=== PATIENT | male | born 1975 | race Caucasian/White ===

== ENCOUNTER 2020-07-07 12:11 | Emergency (ER) | payer OTHER ==
[2020-07-07 12:17] VITALS: TEMP 97.3; BMI 26.6
--- NOTE | 2020-07-07 12:53 | PDOC ---
History of Present Illness - General Chief Complaint: Headache Stated Complaint: THUNDERCLAP HEADACHE Time Seen by Provider: 07/07/20 12:52 History Source: Patient Exam Limitations: No Limitations - History of Present Illness Initial Comments: 07/07/20 12:52 Vamshi London is a 44M with no PMH presenting with acute onset GAINES. Per urgent care report, Past History - Medical History Allergies/Adverse Reactions: Allergies Allergy/AdvReac Type Severity Reaction Status Date / Time No Known Allergies Allergy Verified 07/07/20 12:13 COPD: No Other medical history: SHINGLES - Immunization History Immunization Up to Date: No - Psycho-Social/Smoking History Smoking History: Never smoked - Substance Abuse Hx (Audit-C & DAST Scrn) How often the patient has a drink containing alcohol: 2-3 times / week Number of drinks the patient has on a typical day: 3 or 4 How often the patient has six or more drinks on one occasion: Never Score: In Men: 4 or > Positive; In Women: 3 or > Positive: 4 Screen Result (Pos requires Nsg. Audit-10AR): Positive In the last yr the pt used illegal drug/Rx for NonMed reason: No Score: Yes response is considered Positive: 0 Screen Result (Positive result requires Nsg. DAST-10): Negative *Physical Exam - Vital Signs Last Vital Signs Temp Pulse Resp BP Pulse Ox 97.3 F L 79 18 138/98 100 07/07/20 12:14 07/07/20 12:14 07/07/20 12:14 07/07/20 12:14 07/07/20 12:14 Discharge - Discharge Information Clinical Impression/Diagnosis: Headache Condition: Unchanged/Unknown Disposition: ELOPED - Follow up/Referral - Patient Discharge Instructions - Post Discharge Activity
--- NOTE | 2020-07-07 13:56 | PDOC ---
Attending Attestation - Resident Resident Name: Jose G Cowan - ED Attending Attestation I have performed the following: I have examined & evaluated the patient, The case was reviewed & discussed with the resident, I agree w/resident's findings & plan - HPI HPI: 07/07/20 12:55 44y M with no pmhx presents to the ED for evaluation of headache. The pt went to urgent care this morning to get a
--- NOTE | 2020-07-07 14:33 | PDOC ---
History of Present Illness - General History Source: Patient Exam Limitations: No Limitations <DeepakBrandy - Last Filed: 07/07/20 14:28> <BaNico - Last Filed: 07/12/20 08:30> - General Chief Complaint: Headache Stated Complaint: THUNDERCLAP HEADACHE Time Seen by Provider: 07/07/20 12:52 Past History - Travel History Traveled outside of the country in the last 30 days: No Close contact w/someone who was outside of country & ill: No - Medical History COPD: No Other medical history: SHINGLES - Immunization History Immunization Up to Date: No - Psycho-Social/Smoking History Smoking History: Never smoked - Substance Abuse Hx (Audit-C & DAST Scrn) How often the patient has a drink containing alcohol: 2-3 times / week Number of drinks the patient has on a typical day: 3 or 4 How often the patient has six or more drinks on one occasion: Never Score: In Men: 4 or > Positive; In Women: 3 or > Positive: 4 Screen Result (Pos requires Nsg. Audit-10AR): Positive In the last yr the pt used illegal drug/Rx for NonMed reason: No Score: Yes response is considered Positive: 0 Screen Result (Positive result requires Nsg. DAST-10): Negative <Brandy Sotelo - Last Filed: 07/07/20 14:28> <Nico Cosme - Last Filed: 07/12/20 08:30> - Medical History Allergies/Adverse Reactions: Allergies Allergy/AdvReac Type Severity Reaction Status Date / Time No Known Allergies Allergy Verified 07/07/20 12:13 Review of Systems - Review of Systems Able to Perform ROS?: Yes Comments:: 07/07/20 14:28 CONSTITUTIONAL: Absent: fever, chills, diaphoresis, generalized weakness, malaise, loss of appetite HEENT: Absent: rhinorrhea, nasal congestion, throat pain, throat swelling, difficulty swallowing, mouth swelling, ear pain, eye pain, visual Changes CARDIOVASCULAR: Absent: chest pain, loss of consciousness, palpitations, irregular heart rate, peripheral edema RESPIRATORY: Absent: cough, shortness of breath, dyspnea with exertion, orthopnea, wheezing, stridor, hemoptysis GASTROINTESTINAL: Absent: abdominal pain, abdominal distension, nausea, vomiting, diarrhea, constipation, melena, hematochezia GENITOURINARY: Absent: dysuria, frequency, urgency, hesitancy, hematuria, flank pain, genital pain MUSCULOSKELETAL: Absent: myalgia, arthralgia, joint swelling SKIN: Absent: rash, itching, pallor HEMATOLOGIC/IMMUNOLOGIC: Absent: easy bleeding, easy bruising, lymphadenopathy, frequent infections ENDOCRINE: Absent: unexplained weight gain, unexplained weight loss, heat intolerance, cold intolerance NEUROLOGIC: Present: Headache Absent: focal weakness or paresthesias, dizziness, unsteady gait, seizure, mental status changes, bladder or bowel incontinence PSYCHIATRIC: Absent: anxiety, depression, suicidal or homicidal ideation, hallucinations. Is the patient limited Maori proficient: No <Brandy Sotelo - Last Filed: 07/07/20 14:28> *Physical Exam - Vital Signs Last Vital Signs Temp Pulse Resp BP Pulse Ox 97.3 F L 79 18 138/98 100 07/07/20 12:14 07/07/20 12:14 07/07/20 12:14 07/07/20 12:14 07/07/20 12:14 - Physical Exam 07/07/20 14:28 GENERAL: Well developed, well nourished. Awake and alert. No acute distress. HEENT: Normocephalic, atraumatic. PERRLA, EOMI. No conjunctival pallor. Sclera are non- icteric. Moist mucous membranes. NECK: Supple. Full ROM. No lymphadenopathy. CARDIOVASCULAR: Regular rate and rhythm. No murmurs, rubs, or gallops. Distal pulses are 2+ and symmetric. PULMONARY: No evidence of respiratory distress. Lungs clear to auscultation bilaterally. No wheezing, rales or rhonchi. ABDOMINAL: Soft. Non-tender. Non-distended. No rebound or guarding. No organomegaly. Normoactive bowel sounds. MUSCULOSKELETAL Normal range of motion at all joints. No bony deformities or tenderness. No CVA tenderness. EXTREMITIES: No cyanosis. No clubbing. No edema. No calf tenderness. SKIN: Warm and dry. Normal capillary refill. No rashes. No jaundice. NEUROLOGICAL: Alert, awake, appropriate. Cranial nerves 2-12 intact. No deficits to light touch and temperature in face, upper extremities and lower extremities. No motor deficits in the in face, upper extremities and lower extremities. Normoreflexic in the upper and lower extremities. Normal speech. Toes are down-going bilaterally. Gait is normal without ataxia. PSYCHIATRIC: Cooperative. Good eye contact. Appropriate mood and affect. <Brandy Sotelo - Last Filed: 07/07/20 14:28> - Vital Signs Last Vital Signs Temp Pulse Resp BP Pulse Ox 97.3 F L 72 15 128/88 99 07/07/20 12:14 07/07/20 16:00 07/07/20 16:00 07/07/20 16:00 07/07/20 16:00 <Nico Cosme - Last Filed: 07/12/20 08:30> ED Treatment Course - RADIOLOGY Radiology Studies Ordered: Category Date Time Status HEAD CT WITHOUT CONTRAST [CT] Stat CT Scan 07/07/20 12:37 Completed <Brandy Sotelo - Last Filed: 07/07/20 14:28> Medical Decision Making - Medical Decision Making 07/07/20 14:28 Patient is a 44-year-old male no past medical history who presents to the ER today for evaluation of a headache. The patient was initially evaluated in [facility]. He states that approximately 945 this morning he had a sudden onset headache to which he rates the pain a 10 out of 10 he states the pain lasted for approximately 1 to 1-1/2 minutes and then started to subside. He states that the pain was through his whole head and radiating down his neck. He states he was sensitive to light at that time. He states he took ibuprofen which help with the pain. He then went to urgent care for COVID antibody testing. He described the headache to the PA at urgent care who referred him to the ER for CAT scan for rule out subarachnoid. He states that this time his symptoms have completely resolved and he feels back to his usual state of health. Denies fevers, chills, headache history, lightheadedness, dizziness nausea and vomiting. A/P: Headache On exam patient neurologically intact with no focal deficits. Given concerning story, CT was ordered, patient upgraded to the main ER for further evaluation. Signout given to Dr. Comse. <Brandy Sotelo - Last Filed: 07/07/20 14:28> Discharge - Discharge Information Problems reviewed: Yes <Brandy Sotelo - Last Filed: 07/07/20 14:28> - Discharge Information Problems reviewed: Yes <Nico Cosme - Last Filed: 07/12/20 08:30> - Discharge Information Clinical Impression/Diagnosis: Eloped from emergency department Headache Qualifiers: Headache type: unspecified Headache chronicity pattern: unspecified pattern Intractability: not intractable Qualified Code(s): R51.9 - Headache, unspecified Condition: Unchanged/Unknown Disposition: ELOPED
--- NOTE | 2020-07-07 14:47 | PDOC ---
*Physical Exam - Vital Signs Last Vital Signs Temp Pulse Resp BP Pulse Ox 97.3 F L 79 18 138/98 100 07/07/20 12:14 07/07/20 12:14 07/07/20 12:14 07/07/20 12:14 07/07/20 12:14 Medical Decision Making - Medical Decision Making 44y M with no pmhx presents to the ED for evaluation of headache. The pt went to urgent care this morning and was referred to the ED for evaluation. The pt had a brief episode of headache this morning that resolved by the time he arrived to the ER. CT was obtained due to concern for SAH. CT was negative, however pt eloped prior to final disposiition. I attempted to call the patient to notify him of results. No answers. Will attempt to call back. 07/07/20 15:07 I was able to reach Mr. London. he had to leave to catch a train. He is currently feeling better, denies any headache. I discussed with him his negative CT, which is good but not definitive for ruling out SAH, and that we usually do a lumbar puncture to rule out SAH. I discussed with him that if he has any further severe headache, vomiting, neurologic symptoms eh should come back to the ER for evaluation. he states he understands. Will have him fu with PMD. return precautinos were dsicused Discharge - Discharge Information Problems reviewed: Yes Clinical Impression/Diagnosis: Eloped from emergency department Headache Qualifiers: Headache type: unspecified Headache chronicity pattern: unspecified pattern Intractability: not intractable Qualified Code(s): R51.9 - Headache, unspecified Condition: Unchanged/Unknown Disposition: ELOPED - Follow up/Referral - Patient Discharge Instructions - Post Discharge Activity
[2020-07-07 17:22] VITALS: BP 128/88; PULSE 72
== END 2020-07-07 16:00 | disposition left against medical advice (07) ==
LOC: JER 12:11
DX: G44.53 Primary thunderclap headache (principal)
CPT/HCPCS: 70450-TC; 99284-25

== ENCOUNTER 2020-07-13 14:05 | Emergency (ER) | payer OTHER ==
[2020-07-13 14:13] VITALS: BP 138/92; PULSE 88; TEMP 98.1; BMI 26.9
--- OUTSIDE RECORDS SUMMARY | 2020-07-13 14:40 | XMS ---
:1975 Author Organization [facility] Support Name Relationship Address Phone [facility] Unavailable [facility] [phone] NA, JUSTEN MUNOZ [address] [place] [address] Re-disclosure Warning The records that you are about to access may contain information from federally- assisted alcohol or drug abuse programs. If such information is present, then the following federally mandated warning applies: This information has been disclosed to you from records protected by federal confidentiality rules (42 CFR part 2). The federal rules prohibit you from making any further disclosure of this information unless further disclosure is expressly permitted by the written consent of the person to whom it pertains or as otherwise permitted by 42 CFR part 2. A general authorization for the release of medical or other information is NOT sufficient for this purpose. The Federal rules restrict any use of the information to criminally investigate or prosecute any alcohol or drug abuse patient.The records that you are about to access may contain highly sensitive health information, the redisclosure of which is protected by Article 27-F of the [facility] Public Health law. If you continue you may haveaccess to information: Regarding HIV / AIDS; Provided by facilities licensed or operated by the [facility] Office of Mental Health; or Provided by the [facility] Office for People With Developmental Disabilities. If such information is present, then the following [facility] mandated warning applies: This information has been disclosed to you from confidential records which are protected by state law. State law prohibits you from making any further disclosure of this information without the specific written consent of the person to whom it pertains, or as otherwise permitted by law. Any unauthorized further disclosure in violation of state law may result in a fine or fci sentence or both. A general authorization for the release of medical or other information is NOT sufficient authorization for further disclosure. Insurance Providers Payer name Policy type Policy ID Covered Covered alliance party's Policy P avani / Coverage alliance party ID relationship to [employer] Inf ormation type [employer] [place] [id number] SP [id number] HEALTH CARE HMO/POS/EPO [facility] [id number] SP [id number]
--- NOTE | 2020-07-13 15:02 | PDOC ---
Rapid Medical Evaluation Chief Complaint: Headache Time Seen by Provider: 07/13/20 14:46 Medical Evaluation: Allergies Allergy/AdvReac Type Severity Reaction Status Date / Time No Known Allergies Allergy Verified 07/13/20 14:08 Vital Signs Temp Pulse Resp BP Pulse Ox 98.1 F 88 18 138/92 100 07/13/20 14:09 07/13/20 14:09 07/13/20 14:09 07/13/20 14:09 07/13/20 14:09 07/13/20 15:01 I performed a brief in-person evaluation of this patient. Patient is a 44-year-old male with no past medical history who presents to the ED for a left occipital headache that radiates superiorly and down to his neck for the last 5 days. He was seen in the emergency department on 07/07/2020 for concern of a thunderclap headache but eloped from the ED after having the CT scan but before it was resulted. His previous CT scan was negative for acute pathology. He states the headache resolved for 2 days but then returned for the last 5. He states it is now not relieved with Excedrin Migraine. He was seen by his primary doctor and sent to the ED for evaluation for possible LP or MRI brain. Pertinent physical exam findings: Speaking in full and complete sentences. No facial droop appreciated. No slurred speech appreciated. Walking with a normal gait and without ataxia. I have ordered the following: Saline lock, labs, CT head Patient to proceed to ED for further evaluation. Discharge Disposition - Diagnosis Headache - Referrals - Patient Instructions - Post Discharge Activity
[2020-07-13] MEDS ORDERED: ACETAMINOPHEN 1000 MG/100 ML VIAL (NON FORMULARY) IVPB ONE (15:05)
[2020-07-13] MEDS ORDERED: METOCLOPRAMIDE HCL INJECTION 10 MG/2 ML VIAL IVPB ONE (15:05)
--- NOTE | 2020-07-13 15:14 | PDOC ---
History of Present Illness - General Chief Complaint: Headache Stated Complaint: EVALUATION Time Seen by Provider: 07/13/20 14:46 - History of Present Illness Initial Comments: HPI: 07/13/20 15:06 44yo M no PMH, presenting to ER with occipital headache for the last 5 days. States that it is dull, 9/10, radiating both superiorly and inferiorly into his neck, exacerbated by looking up or to the right. Notably, he was seen here on 07/07/2020 with concern for a thunderclap headache; eloped after having the CT scan but before the official read. This CT was negative for acute pathology, and he was notified by phone. Mr. London states the headache resolved for two days, but subsequently returned for the last five days. He has tried ibuprofen and Excedrin Migraine without relief. He last took two tablets of Excedrin this morning. Reports that he went to see a new primary care doctor and was actually seen immediately by a neurologist when he states his chief complaint was headache. Subsequently sent to ER for further evaluation. ROS: GENERAL/CONSTITUTIONAL: denies fever, chills, diaphoresis, generalized weakness, malaise HEAD, EYES, EARS, NOSE AND THROAT: denies rhinorrhea, nasal congestion NEUROLOGIC: endorses headache. Denies focal weakness, dizziness, unsteady gait, seizure, mental status changes CARDIOVASCULAR: denies chest pain, syncope, palpitations, irregular heart rate, lightheadedness RESPIRATORY: denies cough, shortness of breath, dyspnea with exertion, wheezing GASTROINTESTINAL: denies abdominal pain, abdominal distension, nausea, vomiting, diarrhea, constipation GENITOURINARY: denies dysuria, frequency, urgency MUSCULOSKELETAL: endorses neck pain. Denies myalgia, arthralgia, joint swelling, back pain SKIN: denies rash, itching PE: Gen: well-developed, well-nourished, NAD Neuro: AAOX4, CN II-XII intact, FTN intact, EOMI, PERRLA, 5/5 strength, SILT. No facial droop or slurred speech, gait normal. Negative Kernig and Brudzinski. HEENT: atraumatic, normocephalic Neck: trachea midline, supple. No nuchal rigidity. CV: regular rate, regular rhythm, no murmurs, rubs, or gallops Pulm: CTA b/l, no wheezing Abd: soft, non-distended, non-tender MSK: full ROM, intact pulses Extr: no edema, no deformities Skin: warm, dry MDM: Concern for possible intracranial bleed v mass v occipital headache. - CBC, CMP - PT/PTT - type and screen - CT head - Ofirmev - Reglan - reassess 07/13/20 17:10 CBC unremarkable. Patient reassessed and saying headache has resolved. Explained importance of lumbar puncture considering repeating symptoms and he is not enthused, states his preference to follow up outpatient. Will f/u other labs, CT results, and reassess. Will also get brain CTA. If all labs and imaging are benign and symptoms are entirely resolved, will plan to dc with close neuro follow up. If they persist, will plan for LP. 07/13/20 17:46 CMP unremarkable. 07/13/20 18:49 Patient reassessed, states symptoms are entirely resolved. Declines to stay for brain CTA or LP. Expresses understanding of the risks, including worsening symptoms and potential . Will dc with close neuro followup. Past History - Medical History Allergies/Adverse Reactions: Allergies Allergy/AdvReac Type Severity Reaction Status Date / Time No Known Allergies Allergy Verified 07/13/20 14:08 Home Medications: Ambulatory Orders NK [No Known Home Medication] 07/13/20 COPD: No - Immunization History Immunization Up to Date: No - Psycho-Social/Smoking History Smoking History: Never smoked Have you smoked in the past 12 months: No - Substance Abuse Hx (Audit-C & DAST Scrn) How often the patient has a drink containing alcohol: Monthly or less Number of drinks the patient has on a typical day: 1 or 2 How often the patient has six or more drinks on one occasion: Never Score: In Men: 4 or > Positive; In Women: 3 or > Positive: 1 Screen Result (Pos requires Nsg. Audit-10AR): Negative In the last yr the pt used illegal drug/Rx for NonMed reason: No Score: Yes response is considered Positive: 0 Screen Result (Positive result requires Nsg. DAST-10): Negative *Physical Exam - Vital Signs Last Vital Signs Temp Pulse Resp BP Pulse Ox 98.1 F 88 18 138/92 100 07/13/20 14:09 07/13/20 14:09 07/13/20 14:09 07/13/20 14:09 07/13/20 14:09 ED Treatment Course - LABORATORY CBC & Chemistry Diagram: 07/13/20 15:30 07/13/20 15:30 Discharge - Discharge Information Problems reviewed: Yes Clinical Impression/Diagnosis: Headache Qualifiers: Headache type: unspecified Headache chronicity pattern: unspecified pattern Intractability: not intractable Qualified Code(s): R51.9 - Headache, unspecified - Follow up/Referral Referrals: Simba Wynne MD [Staff Physician] - - Patient Discharge Instructions Patient Printed Discharge Instructions: DI for Headache Additional Instructions: You were seen with headache. This improved with medications. However, it is extremely important that you follow up with your primary care doctor within a week. It is also essential that you meet with a neurologist as soon as possible, the number is in your paperwork. Return to the ER if you develop new or worsening symptoms. - Post Discharge Activity
[2020-07-13] MEDS ORDERED: METOCLOPRAMIDE HCL INJECTION 10 MG/2 ML VIAL ONE (15:34)
[2020-07-13] MEDS ORDERED: ACETAMINOPHEN INJECTION 100 ML IVPB ONE (15:34)
[2020-07-13 16:47] LABS: BASO % 0.4 % (0-2.0); EOS % 0.8 % (0-4.5); HEMATOCRIT 46.6 % (35.4-49); HEMOGLOBIN 15.9 GM/dL (11.7-16.9); LYMPH % 25.5 % (8-40); MCH 30.1 pg (25.7-33.7); MEAN CELL VOLUME 88.4 fl (80-96); MEAN PLT VOLUME 7.9 fl (7.5-11.1); MONO % 6.1 % (3.8-10.2); NEUT % 67.2 % (42.8-82.8); PLATELET COUNT 211 K/MM3 (134-434); RBC 5.27 M/mm3 (4.00-5.60); RDW 13.5 % (11.9-15.9); WHITE BLOOD COUNT 7.5 K/mm3 (4.0-10.0)
[2020-07-13 17:15] LABS: ALBUMIN 4.2 g/dl (3.4-5.0); BILIRUBIN,TOTAL 0.7 mg/dL (0.2-1); CALCIUM 8.4 mg/dL (8.5-10.1); CREATININE 0.9 mg/dL (0.55-1.3); POTASSIUM 4.4 mmol/L (3.5-5.1); TOT PROT 7.6 g/dl (6.4-8.2)
--- NOTE | 2020-07-13 17:24 | PDOC ---
Documentation entered by Susy Cummins SCRIBE, acting as scribe for Nico Cosme MD. Nico Cosme MD: This documentation has been prepared by the Placido desai Xhesika, SCRIBE, under my direction and personally reviewed by me in its entirety. I confirm that the documentation accurately reflects all work, treatment, procedures, and medical decision making performed by me. Attending Attestation - Resident Resident Name: Leticia Doshi - ED Attending Attestation I have performed the following: I have examined & evaluated the patient, The case was reviewed & discussed with the resident, I agree w/resident's findings & plan, Exceptions are as noted - HPI HPI: 07/13/20 15:16 The patient is a 44y/o M with no PMH, who presents to the ED with occipital headache x5 days. Pt describes his pain as dull, 7/10, radiating into his neck, exacerbated by looking up or to the right. Pt was seen here on 07/07/2020 with concern for a thunderclap headache; eloped after having the CT scan (before official read, however, pt was notified with the results by phone). Since then the pt notes the headache resolved initially, but subsequently returned for the last five days. Pt states he took ibuprofen and Excedrin Migraine, with no improvement of symptoms. Pt states his PMD advised him to come to the ED for possible LP or MRI brain. The patient denies chest pain, shortness of breath. Denies fever, chills, cough, nausea, vomiting, diarrhea and constipation. Denies dysuria, frequency, urgency and hematuria. Allergies: NKDA - Physicial Exam PE: 07/13/20 17:09 GENERAL: The patient is awake, alert, and fully oriented, Nontoxic - in no acute distress. HEAD: Normocephalic, atraumatic. EYES: extraocular movements intact, sclera anicteric, conjunctiva clear. ENT: Normal voice, Moist mucous membranes. NECK: Normal range of motion, supple, no menigismus, neg kernigs LUNGS: Breath sounds equal, clear to auscultation bilaterally. No wheezes, no rhonchi, no rales. HEART: Regular rate and rhythm, normal S1 and S2 without murmur, rub or gallop. ABDOMEN: Soft, nontender, No guarding, no rebound. No CVA tenderness EXTREMITIES: Normal range of motion, no edema. NEUROLOGICAL: No facial assymetry, Normal speech, moving all 4 ext spontaneously and symmetrically PSYCH: Normal mood, normal affect. SKIN: Warm, Dry, normal turgor, - Medical Decision Making 07/13/20 15:54 44y presents with headche. Had a brief severe headache that resolved psontaneously prior to arrival last thursday, had a CT that was neg and pt eloped. I had discussed wit the pt and his h/a had resolved. However, on thursday, he began to have a mild occipital headache after waking up on thursday, and gradually the headache has been worsening without improvement with excedrin so was referred to the ED for evaluation. pt enodrsed feeling nauseus, denies vision changes, f/c, cp, sob, back pain, focal numbness/tingling/weakness. pt denies any frequent headaches. 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 He does note the pain seems to be worse when he moves his head around. 07/13/20 17:20 07/13/20 17:19 pt feeling improved and is asymtpmoatic currently after receiving reglan. I discussed the possibility of a SAH and taht although eh had a negative CT last time, it does not r/o with certainty for a SAH and that a LP is necessary. The patinet state that he thinks perhaps 'not today' as he is feeling better. I discussed the risks of not doing it including missing the dx of a SAH. AFter further discussion, we will obtain a CTA to look for aneursyms. Will revisit LP discussion when we reasess him. 07/13/20 18:53 pt remains asymptomatic now does not want to obtain the CTA as he feels better. states he will follow up with neurology I had extensive discussion wit the patient regarding risk of missed diagnosis of SAH if we do not obtain CTA or do a LP. he states he understands and would prefer to fu woth neurlogy. states he feels completely asymptomatic with out any headache or neck discomfott and would much prefer to to see neurology rather than do the recommended tests. he is alert and oriented and of sound mind and was able to verbalie my concernse of the risks. will dc to fu with neuro as outpatint with strict return preacutions. Discharge - Discharge Information Problems reviewed: Yes Clinical Impression/Diagnosis: Headache Qualifiers: Headache type: unspecified Headache chronicity pattern: acute headache Intractability: not intractable Qualified Code(s): R51.9 - Headache, unspecified Condition: Improved Disposition: HOME - Admission No - Follow up/Referral Referrals: Simba Wynne MD [Staff Physician] - - Patient Discharge Instructions Patient Printed Discharge Instructions: DI for Headache Additional Instructions: You were seen with headache. This improved with medications. However, it is extremely important that you follow up with your primary care doctor within a week. It is also essential that you meet with a neurologist as soon as possible, the number is in your paperwork. Return to the ER if you develop new or worsening symptoms. - Post Discharge Activity
== END 2020-07-13 19:02 | disposition home or self-care (01) ==
LOC: JER 14:05
PROC: 3E0333Z Introduction of Anti-inflammatory into Peripheral Vein, Percutaneous Approach (ICD-10-PCS; principal; 2020-07-13)
PROC: 3E033GC Introduction of Other Therapeutic Substance into Peripheral Vein, Percutaneous Approach (ICD-10-PCS; 2020-07-13)
DX: R51.9 Headache, unspecified (principal)
CPT/HCPCS: 36415; 80053; 84443; 85025; 86850; 86900; 86901; 99285-25; J0131